=== PATIENT | male | born 1980 | race Caucasian/White ===

== ENCOUNTER 2023-02-20 09:45 | Emergency (ER) | payer MEDICAID, OTHER ==
[2023-02-20] MEDS ORDERED: Sodium Chloride 0.9% 1000 ML 1,000 ML IV STA (10:00)
[2023-02-20] MEDS ORDERED: Sodium Chloride 0.9% 1000 ML 1,000 ML ONE (10:06)
[2023-02-20 10:07] VITALS: TEMP 96.2
[2023-02-20 10:35] LABS: Absolute Neutrophil Ct (ANC) 14.16 x10^3/uL (1.4-6.9); BASOPHIL % 0.2 % (0.0-0.4); Basophil (Absolute #) 0.04 x10^3/uL (0-0.4); Eosinophil % 1.2 % (0.00-5.0); Eosinophil (Absolute #) 0.19 x10^3/uL (0-0.5); Hematocrit 43.9 % (42-50); Hemoglobin 15.5 g/dL (12.5-18.0); IMMATURE GRAN # 0.06 x10^3u/L (0.00-0.03); IMMATURE GRAN % 0.4 % (0.00-0.4); Lymphocyte (Absolute #) 1.11 x10^3/uL (1.0-4.6); Lymphocytes % 6.8 % (24.0-44.0); Mean Cell Volume 88.2 fL (78-100); Mean Corpuscular Hemoglobin 31.1 pg (26-32); Mean Corpuscular Hgb Concent. 35.3 g/dL (32-36); Monocyte (Absolute #) 0.78 x10^3/uL (0.0-1.3); Monocytes % 4.8 % (0.0-12.0); Neutrophil % 86.6 % (36.0-66.0); Platelet Count 239 x10^3/uL (150-450); Red Blood Count 4.98 x10^6/uL (4.1-5.6); Red Cell Distribution Width 12.4 % (11.5-14.0); White Blood Count 16.3 x10^3/uL (4.0-10.5)
[2023-02-20 10:50] LABS: Appearance Cloudy (Clear); Bacteria None Seen /HPF (None Seen); Bilirubin Negative (Negative); Blood Negative (Negative); Epithelial Cells None Seen /HPF (None Seen); Glucose, Urine Negative (Negative); Ketones Trace (Negative); Leukocyte Esterase Negative (Negative); Nitrite Negative (Negative); Protein,Urine Dip Negative (Negative); WBC 0-2 /HPF (0-5)
[2023-02-20 10:51] LABS: ADD URINE CULTURE? YES (NO)
[2023-02-20 10:52] LABS: ACETAMINOPHEN < 10 ug/ml (10-30); ALBUMIN 4.4 g/dL (3.5-5.0); ALKALINE PHOSPHATASE 77 U/L (38-126); ANION GAP 13.4 MEQ/L (5-15); BLOOD UREA NITROGEN 8 mg/dL (9-20); CHLORIDE 103 mmol/L (98-107); Calcium 9.2 mg/dL (8.4-10.2); Carbon Dioxide 25 mmol/L (22-30); Creatinine 1 0.69 mg/dL (0.66-1.25); ETHYL ALCOHOL < 10 mg/dL (0-10); Glucose 175 mg/dL (74-106); Potassium 3.2 mmol/L (3.5-5.1); SALICYLATE < 1.0 mg/dL (2-20); SGOT/AST 30 U/L (17-59); SGPT/ALT 31 U/L (0-50); SODIUM 138 mmol/L (137-145)
[2023-02-20 10:53] LABS: Amphetamine,Urine NEGATIVE (NEGATIVE); Barbiturate,Urine NEGATIVE (NEGATIVE); Benzodiazepine,Urine NEGATIVE (NEGATIVE); Cocaine,Urine NEGATIVE (NEGATIVE); Methadone,Urine NEGATIVE (NEGATIVE); Opiate,Urine NEGATIVE (NEGATIVE); PCP,Urine NEGATIVE (NEGATIVE); THC,Urine POSITIVE (NEGATIVE)
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
[2023-02-20 16:38] VITALS: RESP 16; O2SAT 98
[2023-02-20 17:05] VITALS: BP 132/88; PULSE 98
== END 2023-02-20 18:00 ==
LOC: ED 09:45
DX: T43.222A Poisoning by selective serotonin reuptake inhibitors, intentional self-harm, initial encounter (principal); R45.851 Suicidal ideations; R45.6 Violent behavior; I10 Essential (primary) hypertension; Z79.899 Other long term (current) drug therapy; Z28.310 Unvaccinated for COVID-19
CPT/HCPCS: 36000; 36415; 80053; 80143; 80179; 80307; 81001; 82077; 83605; 85025; 87086; 93005; 93041; 94760; 99284